=== PATIENT | female | born 1990 | race Hispanic/Latino ===

== ENCOUNTER 2024-09-21 21:37 | Emergency (ER) | payer OTHER, SELFPAY ==
[2024-09-21 21:40] VITALS: BP 127/90
[2024-09-21 22:08] LABS: % Basophils 0.1 % (0-2); % Eosinophils 1.3 % (0-6); % Immature Granulocytes 0.3 % (0-0.5); % Lymphocytes 32.9 % (20.5-51.1); % Neutrophils 54.4 % (42.2-75.2); Absolute Eosinophils 0.1 10^3/uL (0-0.7); Absolute Lymphocytes 2.3 10^3/uL (1.2-3.4); Absolute Monocytes 0.8 10^3/uL (0.1-0.6); Absolute Neutrophils 3.8 10^3/uL (1.4-6.5); Hematocrit 40.9 % (37.0-47.0); Hemoglobin 14.2 g/dL (12.0-16.0); Mean Corp Hgb Conc. 34.7 g/dL (33.0-37.0); Mean Corpuscular Hgb 30.9 pg (27.0-31.0); Mean Corpuscular Volume 89.1 fL (81.0-99.0); Mean Platelet Volume 8.5 fL (7.4-10.4); Nucleated Red Blood Cells % 0 %; Platelet Count 286 10^3/uL (130-400); Red Blood Cell Count 4.59 10^6/uL (4.20-5.40); Red Cell Dist. Width 12.5 % (11.5-14.5); White Blood Cell Count 6.9 10^3/uL (4.8-10.8)
[2024-09-21 22:20] LABS: ALT (SGPT) 43 U/L (0-35); AST (SGOT) 42 U/L (14-36); Albumin 4.4 g/dl (3.5-5.0); Alkaline Phosphatase 110 U/L (38-126); Blood Urea Nitrogen 11 mg/dl (7-17); Calcium 9.1 mg/dl (8.4-10.2); Carbon Dioxide 18 mmol/L (22-30); Chloride 104 mmol/L (98-107); Glucose 105 mg/dl (70-99); Potassium 3.6 mmol/L (3.5-5.1); Sodium 135 mmol/L (135-145); Total Bilirubin 0.6 mg/dl (0.2-1.3); Total Protein 7.2 g/dl (6.3-8.2); eGFR > 60.00
--- NOTE | 2024-09-21 23:13 | ED.GENMED ---
Addendum entered and electronically signed by EAMON 09/29/24 18:01:
Called and left a message on patient answering Machine that her stools were normal. Patient can call back with any questions.
Original Note:
History of Present Illness
General
Chief Complaint: Abdominal Symptoms
Source: patient
Exam Limitations: none
Time Seen by Provider: 09/21/24 22:38
History of Present Illness
History of Present Illness:
This is a 34 year old female that comes in with c/o diarrhea and abd pain. States that she thinks she has parasites. States that she was in [place] and she did drink the water. States that she got back yesterday. States that she started last
Sunday or Sunday with diarrhea. States that she goes 4-5 time daily and she thinks he has worms in the diarrhea. States that she see's little white circles. States that she has abd pain with nausea, diarrhea, and a headache. States that she feels
she is falling behind with the fluids. Denies any fever, chills, darrius pain, SOB, vomiting, dizziness, urinary burning.
Past History
Past History
ED Past Medical History: Other (Migraines)
ED Past Surgical History: Gynecological (IUD removed) and Other (Breast Augmentation )
Social History
Tobacco: Non-smoker
Alcohol: Occasional
Personal:
Living: alone
Family History
Family History: Other (Mother had placenta previa and a miscarriage)
Review of Systems
Review of Systems
All Other Systems: ROS reviewed and negative except as documented in HPI and ROS
Constitutional: Reports no symptoms; Denies fever or chills
EENT: Reports no symptoms
Respiratory: Reports no symptoms; Denies cough or trouble breathing
Cardiac: Reports no symptoms; Denies chest pain
ABD/GI: Reports abdominal pain, nausea and diarrhea; Denies vomiting
: Reports no symptoms; Denies dysuria, frequency or urgency
Musculoskeletal: Reports no symptoms
Skin: Reports no symptoms
Neurological: Reports headache; Denies dizzy
Psychiatric: Reports no symptoms
Phy Exam
General Physical Exam
General Presentation: mild distress
General age: appears stated age
General Skin: warm and dry
General Habitus: normal
General Mental: alert
General Hydration: appears well hydrated
ENT Exam
ENT Exam: TM's normal, pharynx normal and neck supple
Eye Exam
Eye Exam: EOMI
Cardiovascular Exam
Cardiovascular Exam: regular rate/rhythm, no edema, no murmur and normal peripheral pulses
Pulmonary Exam
Pulmonary Exam: lungs clear, no respiratory distress, no rales, chest non tender, no crackles, no rhonchi, no wheezing and no cough
Gastrointestinal Exam
Gastrointestinal Exam: soft, no organomegaly, no pulsatile mass, non distended, tender (Generalized tenderness with palpation) and other (Hypoactive bowel sounds)
Musculoskeletal Exam
Musculoskeletal Exam: full ROM and no edema
Skin Exam
Skin Exam: normal color, warm/dry, no rash and no petechia
Psychiatric Exam
Psychiatric Exam: normal mood/affect
Course
Orders/Labs/Results
Orders:
Orders
09/21/24 21:55
Complete Blood Count/With Diff Urgent
Comprehensive Metabolic Panel Urgent
09/21/24 23:12
Add On- LAB Urgent
Tests Added?: Stool for Ova and parasites.
09/21/24 23:26
C difficile Antigen & Toxins Urgent
ALVIN Source: Feces/Stool
Specimen Description:
Date Specimen was Collected: 09/21/24
Time Specimen was Collected: 21:48
Stool Culture Urgent
ALVIN Source: Feces/Stool
Specimen Description:
Date Specimen was Collected: 09/21/24
Time Specimen was Collected: 21:48
09/21/24 23:30
0.9% Sodium Chloride 1000 ml [Nss] 1,000 ml IV BOLUS
Ketorolac [Toradol] 30 mg IV NOW STA
Ondansetron Injectable [Zofran] 4 mg IV NOW STA
Abnormal Lab Results
09/21/24
21:55
Absolute Monos (auto) 0.8 H 10^3/uL
(0.1-0.6)
Monocytes % 11.0 H %
(1.7-9.3)
Carbon Dioxide 18 L mmol/L
(22-30)
Glucose 105 H mg/dl
(70-99)
AST 42 H U/L
(14-36)
ALT 43 H U/L
(0-35)
09/21/24 21:55
09/21/24 21:55
carbon dioxide slightly low. AST/ALT slightly elevated.
Vital Signs
Initial and Last Documented VS:
Initial Vital Signs
Temp Pulse Resp BP Pulse Ox
97.8 F 96 16 127/90 98
09/21/24 21:40 09/21/24 21:40 09/21/24 21:40 09/21/24 21:40 09/21/24 21:40
Last Documented Vital Signs
Temp Pulse Resp BP Pulse Ox
97.8 F 96 16 127/90 98
09/21/24 21:40 09/21/24 21:40 09/21/24 21:40 09/21/24 21:40 09/21/24 21:40
MDM/Problems Addressed
Differential Diagnosis Includes:
Travelers diarrhea, Stool with Parasites.
MDM/Problems Addressed:
This is a 34 year old female that comes in with c/o diarrhea since last Sunday or Sunday. States that she was in [place] and she did drink the water. States that she now thinks she is seeing little worms as there are white circles.
Will get labs, Stool. Spoke with Dr. Corbett. Will treat at out patient. Will sent stool and she will follow up. Will discharge patient after IV fluids, Zofran and Toradol.
Spoke with patient and she is to follow up with Dr. Corbett. She can call there office tomorrow for results of her stool. Will send prescription for Zofran to patient pharmacy to help with the nausea. Patient to return with any concerns.
Chronic conditions affecting care:
NA
Acute Exacerbation and/or Progression of Chronic Illness:
NA
*Pulse Oximetry
Patient hypoxic: no
*EKG
Interpreted by ED Provider?: NA
Rate: EKG- N/A
*Agriculture Inspector Interpretation
Rate: Agriculture Inspector- N/A
*Critical Care Note
Total Time (30-74mins, 75-104mins- exclusive of procedures): Not Applicable
ED Attending Note
-
Portions of this chart may have been created with voice recognition software.� Occasional wrong word or��sound alike� substitutions may have occurred due to the inherent limitations of voice recognition software.
Discharge Plan
Departure
Patient Disposition: Home (Routine Discharge)
Date of Disposition: 09/21/24
Time of Disposition: 23:56
Patient with high blood pressure during this ER visit?: Yes
Condition: Good
Discharge Problem:
Diarrhea, Abdominal pain
Instructions: Dehydration, Adult (DC), Abdominal Pain, BLOOD PRESSURE
Prescriptions:
New
ondansetron 4 mg tablet,disintegrating
4 mg PO Q8H PRN (Reason: nausea and vomiting) Qty: 10 0RF
No Action
prenat.vits,monet,jkp-hggs-luzuy [ Vitamin] 1 EACH tablet
1 tab PO DAILY
ibuprofen 600 MG tablet
600 mg PO Q4HPRN PRN (Reason: moderate pain/cramps) 0RF
Referrals:
UNKNOWN - PT DOES,NOT KNOW [Family Provider] -
Katty Corbett MD [Active] - Follow up in 2-3 days
Activity Restrictions/Additional Instructions:
As discussed, your blood work shows that your liver enzymes are slightly elevated. Your stool has been sent for testing. You can follow up with the Infectious disease for further evaluation once the stools have been resulted. You have had a
prescription for nausea sent to your pharmacy. Please stay away form milk and milk products as long as you have diarrhea. Please increase your water intake to 8-8oz glasses daily. IF YOU HAVE FEVER, INCREASED OR CHANGING ABD PAIN, OR YOU HAVE ANY
OTHER CONCERNS PLEASE RETURN TO THE EMERGENCY ROOM.
Interventions
Interventions:
*Risk Screen - Suicide Last Done: 09/21/24 21:40
*General Assessment Last Done: 09/21/24 21:40
*Neglect/Abuse Screening Last Done: 09/21/24 21:40
ED- Fall Risk Assessment Last Done: 09/21/24 23:09
*ED COVID-19 Vaccine History Last Done: 09/21/24 21:40
VW-Ikwunq-Nqvdlbujfl Assessment Last Done: 09/21/24 23:09
Discharge Date and Time
Print Language: [place]
[2024-09-21] MEDS: TORADOL 30 MG IV (23:58)
[2024-09-21] MEDS: ZOFRAN 4 MG IV (23:58)
[2024-09-22] MEDS: NSS 1000 IV
== END 2024-09-22 01:11 | disposition home or self-care (01) ==
LOC: EMR 21:37
PROVIDERS: Emergency Medicine; EMERGENCY PHYSICIAN Student in an Organized Health Care Education/Training Program
DX: R19.7 Diarrhea, unspecified (principal); R10.9 Unspecified abdominal pain; R03.0 Elevated blood-pressure reading, without diagnosis of hypertension
CPT/HCPCS: 99284; 96374; 96375; 80053; 85025; 87045; 87046; 87077; 87324; 87328; 87329; 87427; 87449

== ENCOUNTER 2025-06-15 10:57 | Emergency (ER) | payer OTHER, SELFPAY ==
[2025-06-15 11:07] VITALS: BP 131/87
[2025-06-15 12:36] VITALS: BMI 29.5
[2025-06-15 13:36] LABS: Hematocrit 38.2 % (37.0-47.0); Hemoglobin 12.8 g/dL (12.0-16.0); Mean Corp Hgb Conc. 33.5 g/dL (33.0-37.0); Mean Corpuscular Volume 91.8 fL (81.0-99.0); Nucleated Red Blood Cells % 0 %; Platelet Count 272 10^3/uL (130-400); Red Cell Dist. Width 13.0 % (11.5-14.5)
[2025-06-15 14:14] LABS: HCG, Urine Qualitative Screen Negative
[2025-06-15 14:44] VITALS: BP 128/84
--- NOTE | 2025-06-15 15:16 | ED.GENMED ---
History of Present Illness
General
Chief Complaint: Vaginal Bleeding
Source: patient
Exam Limitations: none
Time Seen by Provider: 06/15/25 12:51
Nursing documentation reviewed up to this point in time: agreed with
History of Present Illness
History of Present Illness:
see MDM
Past History
Past History
ED Past Medical History: Other (Migraines)
ED Past Surgical History: Gynecological (IUD removed) and Other (Breast Augmentation )
Social History
Tobacco: Non-smoker
Alcohol: Occasional
Personal:
Living: alone
Family History
Family History: Other (Mother had placenta previa and a miscarriage)
Review of Systems
Review of Systems
Allergies reviewed?: Yes
All Other Systems: Not applicable
Course
Orders/Labs/Results
Orders:
Orders
06/15/25 13:14
Pelvis & Transvaginal US [US Pelvis W Transvag Combined] Urgent
Comment:
Reason For Exam: DUB;
06/15/25 13:15
Test Result ONCE
06/15/25 13:17
Complete Blood Count/With Diff Urgent
HCG, Urine Qualitative Screen Urgent
Date Specimen was Collected: 06/15/25
Time Specimen was Collected: 13:16
Abnormal Lab Results
06/15/25
13:17
RBC 4.16 L 10^6/uL
(4.20-5.40)
06/15/25 13:17
Vital Signs
Initial and Last Documented VS:
Initial Vital Signs
Temp Pulse Resp BP Pulse Ox
36.6 C 70 18 131/87 100
06/15/25 11:07 06/15/25 11:07 06/15/25 11:07 06/15/25 11:07 06/15/25 11:07
Last Documented Vital Signs
Temp Pulse Resp BP Pulse Ox
36.6 C 60 18 128/84 100
06/15/25 11:07 06/15/25 14:44 06/15/25 14:44 06/15/25 14:44 06/15/25 15:18
MDM/Problems Addressed
Differential Diagnosis Includes:
see MDM
MDM/Problems Addressed:
Note:
CHIEF COMPLAINT(S)
Heavy vaginal bleeding with passage of large clots.
HISTORY OF PRESENT ILLNESS
The patient is a 34-year-old female presenting with concerns of unusual and heavy menstrual bleeding. She reports that she has never experienced such heavy bleeding before this episode. pt has nexplanon since december and has had minimal periods and
some spotting every other day but nothing significant
then 3 days ago She described passing a clot that was notably large and creating a sense of urgency due to excessive bleeding while she was out socially.
pt says the blood was leaking down her leg but stopped once she passed a palm sized clot.
then yesterday she had another episode with bleeding that was present until she passed another clot and then 12 hours no bleeding until today
called gyne and was told to come in
she denies significant pain, passing out, lightheadedness, cp, sob.
The patient previously became while on another form of control, which led to discussions about sterilization. However, she decided against tubal ligation at the time due to advice regarding her age and the permanence of the procedure.
PAST MEDICAL AND SURGICAL HISTORY
No surgeries or significant medical history discussed.
PE:
GENERAL: Alert , in no apparent distress
EYE: pupils equal and reactive
NECK: Supple
ENT: o/p clr, mmm.
CARDIAC: Regular rate and rhythm .
LUNGS: Clear breath sounds bilaterally, no acute respiratory distress, no wheezes/rales/rhonchi
ABDOMEN: Soft, without focal tenderness, no r/g, no cvat, normal bowel sounds
: mild blood in vault
no clots
os closed
nontender
NEUROLOGICAL: Alert and oriented, no focal neuro deficits
SKIN: Warm and dry, skin intact.
PSYCH: Normal and appropriate interaction.
PLAN
A pelvic examination will be conducted to assess for potential fibroids or other abnormalities that could be causing the excessive bleeding. A test will also be performed to rule out possible complications. The patient was
advised to follow up with her Financial Business Analyst and mentioned attempting to contact them earlier for guidance.
SOCIAL HISTORY
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 She resides in the area and mentioned that she does not travel frequently for work.
DIFFERENTIAL DIAGNOSIS
The Differential Diagnosis includes, in no particular order and is not limited to:
1. Uterine fibroids
2. Dysfunctional uterine bleeding
3. Hormonal imbalance
4. Complications from Nexplanon
5. Early miscarriage
6. Endometrial hyperplasia
7. Coagulopathy
8. Adenomyosis
9. Endometrial polyp
10. Ectopic
*Pulse Oximetry
SaO2: 100
Oxygen Mode of Delivery: Room air
ED Attending Note
-
Portions of this chart may have been created with voice recognition software.� Occasional wrong word or��sound alike� substitutions may have occurred due to the inherent limitations of voice recognition software.
Discharge Plan
Departure
Discharge Problem:
Bleeding, uterine, dysfunctional
Instructions: Heavy Periods (DC)
Prescriptions:
No Action
prenat.vits,monet,nno-gwbc-jdlwy [ Vitamin] 1 EACH tablet
1 tab PO DAILY
ibuprofen 600 MG tablet
600 mg PO Q4HPRN PRN (Reason: moderate pain/cramps) 0RF
ondansetron 4 mg tablet,disintegrating
4 mg PO Q8H PRN (Reason: nausea and vomiting) Qty: 10 0RF
Referrals:
Romina Queen PA-C [Family Provider, Internal Medicine] - Follow up in 2-3 days
Activity Restrictions/Additional Instructions:
YOUR HEMOGLOBIN WAS NORMAL AND YOUR TEST WAS NEGATIVE
YOU SHOULD FOLLOW UP WITH OB/GYNE
THEY WILL SOMETIMES PUT YOU ON EXTRA MEDICATION LIKE HORMONE THERAPY TO HELP CONTROL BLEEDING
RETURN FOR: BLEEDING MORE THAN 1 PAD SOAKED FRONT TO BACK/SIDE TO SIDE OVER 1 HOUR FOR 2 HOURS IN A ROW OR MORE, LIGHTHEADEDNESS/PASSING OUT OR ANY CONCERN.
Interventions
Interventions:
*Risk Screen - Suicide Last Done: 06/15/25 11:07
*General Assessment Last Done: 06/15/25 11:07
*Neglect/Abuse Screening Last Done: 06/15/25 13:28
*ED- Fall Risk Assessment Last Done: 06/15/25 13:28
*ED COVID-19 Vaccine History Last Done: 06/15/25 13:28
*ED Influenza Vaccine History Last Done: 06/15/25 13:28
ED-Female Genitourinary Assessment Last Done: 06/15/25 12:36
Discharge Date and Time
Print Language: TONGAN
[2025-06-15 16:52] VITALS: BP 122/65
== END 2025-06-15 16:54 | disposition home or self-care (01) ==
LOC: EMR 10:57
PROVIDERS: Physician Assistant; EMERGENCY PHYSICIAN Emergency Medicine; FAMILY PHYSICIAN Physician Assistant Medical
DX: N93.8 Other specified abnormal uterine and vaginal bleeding (principal); Z79.3 Long term (current) use of hormonal contraceptives
CPT/HCPCS: 99284; 76830; 76856; 81025; 85025